=== PATIENT | female | born 1955 | race Two or more races ===

== ENCOUNTER → 2018-01-12 | Outpatient (CLI) | payer BC | LOC: LAB SHORT 09:41 → LAB 09:41 | PROVIDERS: Hospitalist | DX: Z12.4 Encounter for screening for malignant neoplasm of cervix (principal) | CPT/HCPCS: G0145 ==

== ENCOUNTER 2018-06-07 08:00 | Day surgery (SDC) | payer BC ==
[~2018-06-07] VITALS: Ht 154.9 cm; Wt 44.8 kg
[2018-06-07] MEDS ORDERED: ASPI81CH (08:29)
== END 2018-06-07 09:54 | disposition home or self-care (01) ==
LOC: ORSCSDS 08:00
PROVIDERS: Surgery
PROC: 0DJD8ZZ Inspection of Lower Intestinal Tract, Via Natural or Artificial Opening Endoscopic (ICD-10-PCS; principal; 2018-06-07 09:15)
DX: Z12.11 Encounter for screening for malignant neoplasm of colon (principal); Z79.82 Long term (current) use of aspirin; Z79.899 Other long term (current) drug therapy
CPT/HCPCS: J7120